=== PATIENT | female | born 1970 | race American Indian/Alaskan Native ===

== ENCOUNTER 2019-11-04 08:59 | Emergency (ER) | payer OTHER ==
[2019-11-04] MEDS ORDERED: ACETAMINOPHEN 500 MG TABLET (FP) PO ONE (09:19)
[2019-11-04 09:27] VITALS: BMI 28.3
[2019-11-04] MEDS ORDERED: ACETAMINOPHEN 500 MG TABLET (FP) ONE (09:30)
--- NOTE | 2019-11-04 09:39 | PDOC ---
History of Present Illness - General Chief Complaint: Injury Stated Complaint: FALL/ BILATERAL LEG INJ Time Seen by Provider: 11/04/19 09:13 History Source: Patient Exam Limitations: No Limitations - History of Present Illness Initial Comments: 11/04/19 09:21 49 yo female phx HTN and DM presents to the ED after a slip and fall from 1 step with an inversion mechanism to both ankles with sudden swelling and pain. Pt states she accidentally tripped down the 1 step, denies hitting head, LOC, changes in strength or sensation on 1 side, N/V, changes in vision, CP, SOB, back pain, abdominal pain. Pt states she fell, was unable to ambulate, was on the ground for 5 min before her son was able to get her to the bed and call the ambulance. Pt does all ADLs on her own prior to fall today. Past History - Medical History Allergies/Adverse Reactions: Allergies Allergy/AdvReac Type Severity Reaction Status Date / Time No Known Drug Allergies Allergy Verified 11/04/19 09:13 [id number] Allergy Intermediate Rash,THROAT Uncoded 11/04/19 09:13 [id number] Home Medications: Ambulatory Orders Cetirizine HCl 10 mg PO DAILY 02/21/16 Enalapril Maleate [Vasotec -] 10 mg PO HS 02/21/16 Simvastatin 20 mg PO DAILY 02/21/16 Ibuprofen [Motrin -] 400 mg PO QID #28 tablet 02/22/16 Metformin HCl [Glucophage] 1,000 mg PO BID 11/04/19 Anemia: No Asthma: No Cancer: No Cardiac Disorders: No CVA: No COPD: No CHF: No Dementia: No Diabetes: No GI Disorders: No Disorders: No HTN: Yes Hypercholesterolemia: No Liver Disease: No Seizures: No Thyroid Disease: No - Psycho-Social/Smoking History Smoking History: Never smoked Review of Systems - Review of Systems Constitutional: Yes: Symptoms Reported HEENTM: Yes: Symptoms Reported Respiratory: Yes: Symptoms reported Cardiac (ROS): Yes: Symptoms Reported ABD/GI: Yes: Symptoms Reported : Yes: Symptoms Reported Musculoskeletal: Yes: Symptoms Reported Integumentary: Yes: Symptoms Reported Neurological: Yes: Symptoms reported *Physical Exam - Physical Exam General Appearance: Yes: Nourished, Appropriately Dressed, Apparent Distress (pain ) HEENT: positive: EOMI Neck: positive: Supple. negative: Carotid bruit Respiratory/Chest: positive: Lungs Clear, Normal Breath Sounds. negative: Respiratory Distress, Accessory Muscle Use Cardiovascular: positive: Regular Rhythm, Regular Rate, S1, S2. negative: Edema, JVD, Murmur Vascular Pulses: Dorsalis-Pedis (R): 4+, Doralis-Pedis (L): 4+ Gastrointestinal/Abdominal: positive: Flat, Soft. negative: Pulsatile Mass, Protuberent, Distended, Guarding, Rebound, Tenderness Musculoskeletal: negative: CVA Tenderness Extremity: positive: Normal Capillary Refill, Normal Inspection, Normal Range of Motion Integumentary: positive: Normal Color, Dry, Warm Neurologic: positive: Fully Oriented, Alert ED Treatment Course - LABORATORY CBC & Chemistry Diagram: 11/04/19 13:30 11/04/19 13:30 - RADIOLOGY Radiology Studies Ordered: Category Date Time Status ANKLE & FOOT-LEFT* [RAD] Stat Radiology 11/04/19 09:16 Ordered ANKLE & FOOT-RIGHT* [RAD] Stat Radiology 11/04/19 09:16 Ordered Medical Decision Making - Medical Decision Making 11/04/19 11:06 discussed case with YURI Howard, recommends CT of ankle Discussed case with Dr. Pickering who looks over images on PACs, states the only fracture found on bilateral lower extremities is the Right distal fibula , not very displaced. Pt can be seen as outpatient Ortho clinic as per Dr. Pickering Discharge - Discharge Information Problems reviewed: Yes Clinical Impression/Diagnosis: Fibula fracture Disposition: HOME - Admission No - Follow up/Referral Referrals: Rafa Pickering MD [Staff Physician] - Baltazar Candelaria DO [Staff Physician] - Arvind Yu DO [Staff Physician] - Andi Lindsey MD [Staff Physician] - Rico Curran MD [Staff Physician] - - Patient Discharge Instructions Patient Printed Discharge Instructions: How to Use Crutches, How to Prevent Falls, Fibula Shaft Fracture Additional Instructions: Please see your Primary Doctor within 48 hours and and call to make an appointment with the Orthopedic doctor referred to you as soon as possible. Rest, Ice, Compress and Elevate your legs, use Motrin over the counter for pain control. Return to the ER for new or concerning symptoms. Thank you - Post Discharge Activity Work/Back to School Note: Back to Work
[2019-11-04] MEDS ORDERED: MORPHINE SULFATE 2 MG/ML VIAL IVPUSH ONE (09:48)
--- NOTE | 2019-11-04 11:18 | PDOC ---
Attending Attestation - Resident Resident Name: ElijahFabian - ED Attending Attestation I have performed the following: I have examined & evaluated the patient, The case was reviewed & discussed with the resident, I agree w/resident's findings & plan - HPI HPI: 11/04/19 15:00 49 yo female phx HTN and DM presents to the ED after a slip and fall from 1 step with an inversion mechanism to both ankles with sudden swelling and pain. Pt states she accidentally tripped down the 1 step, denies hitting head, LOC, changes in strength or sensation on 1 side, N/V, changes in vision, CP, SOB, back pain, abdominal pain. Pt states she fell, was unable to ambulate, was on the ground for 5 min before her son was able to get her to the bed and call the ambulance. Pt does all ADLs on her own prior to fall today. - Physicial Exam PE: 11/04/19 15:01 physical exam General: NAD, well appearing HEENT: NCAT, EOMI, PERRL. airway patent Resp: no distress, speaking full sentences. Abdomen: soft, no tenderness, nondistended Vascular: 2+ DP pulses symmetric and equal. MSK: soft compartment. no calf tenderness. 5/5 plantar and dorsiflexion, wiggles toes. SILT. no laxity at knee jt. 2+ DP pulses bilaterally. b/l ankle swelling and tenderness, left > right b/l lateral malleolar tenderness no prox fibular tenderness Neuro: alert, no focal neurologic deficits Skin: color normal color, warm and well perfused. Cap refill <2 sec. - Medical Decision Making 11/04/19 15:04 Vital Signs Temp Pulse Resp BP Pulse Ox 98.0 F 70 16 170/90 99 11/04/19 09:00 11/04/19 09:00 11/04/19 09:00 11/04/19 09:00 11/04/19 09:27 11/04/19 15:06 Vital signs reviewed mildly hypertensive otherwise unremarkable likely from pain X-rays revealed right distal fibula fracture, no fibula involvement Ankle mortise is preserved, symmetric joint alignment, no dislocation CT scans were performed bilaterally to elucidate occult fracture given the severity of her ankle pain and swelling. Right ankle with slightly displaced right lateral malleoli are fracture and moderate overlying soft tissue swelling, confirmed the ankle mortise is intact, left ankle is only significant soft tissue swelling over the lateral malleolus no evidence of fracture or dislocation. Ankle mortise is also intact. AO splint was placed to the right lower extremity, nonweightbearing fibula is affected. Blake wrapped the left ankle sprain. Crutches to assist with ambulation and weightbearing as tolerated, follow-up with Dr. Pickering as an outpatient, monitor for any worsening symptoms, weightbearing as tolerated, OTC analgesia. Return precautions discussed. Discharged in stable condition. fall safety prevention also discussed. 11/05/19 17:36 Discharge - Discharge Information Problems reviewed: Yes Clinical Impression/Diagnosis: Fibula fracture Qualifiers: Fibula location: distal Fracture type: closed Fracture morphology: unspecified fracture morphology Laterality: right Fracture healing: with routine healing Left ankle sprain Qualifiers: Encounter type: initial encounter Involved ligament of ankle: unspecified ligament Qualified Code(s): S93.402A - Sprain of unspecified ligament of left ankle, initial encounter Condition: Fair Disposition: HOME - Admission No - Follow up/Referral Referrals: Andi Lindsey MD [Staff Physician] - Rico Curran MD [Staff Physician] - Rafa Pickering MD [Staff Physician] - Arvind Yu DO [Staff Physician] - Baltazar Candelaria DO [Staff Physician] - - Patient Discharge Instructions Patient Printed Discharge Instructions: How to Use Crutches, How to Prevent Falls, Fibula Shaft Fracture Additional Instructions: Please see your Primary Doctor within 48 hours and and call to make an appointment with the Orthopedic doctor referred to you as soon as possible. Rest, Ice, Compress and Elevate your legs, use Motrin over the counter for pain control. Return to the ER for new or concerning symptoms. Thank you - Post Discharge Activity Work/Back to School Note: Back to Work
[2019-11-04] MEDS ORDERED: morphine SULFATE 4 MG/ML VIAL ONE (11:21)
[2019-11-04] MEDS ORDERED: MORPHINE SULFATE 2 MG/ML VIAL ONE (11:35)
[2019-11-04 14:06] LABS: HEMATOCRIT 32.1 % (32.4-45.2); MCHC 31.1 g/dl (32.0-36.0); MEAN PLT VOLUME 8.3 fl (7.5-11.1); PLATELET COUNT 332 K/MM3 (134-434); RBC 4.34 M/mm3 (3.60-5.2); WHITE BLOOD COUNT 8.4 K/mm3 (4.0-10.0)
[2019-11-04 14:15] LABS: PROTHROMBIN TIME (PATIENT) 11.8 SEC (9.7-13.0)
[2019-11-04 14:45] LABS: ALBUMIN 3.6 g/dl (3.4-5.0); BILIRUBIN,TOTAL 0.7 mg/dL (0.2-1); BLOOD UREA NITROGEN 7.3 mg/dL (7-18); CALCIUM 8.9 mg/dL (8.5-10.1); CREATININE 0.7 mg/dL (0.55-1.3); POTASSIUM 3.7 mmol/L (3.5-5.1); TOT PROT 7.3 g/dl (6.4-8.2)
[2019-11-04 15:08] VITALS: BP 143/93; PULSE 98; TEMP 98.6
== END 2019-11-04 15:20 | disposition home or self-care (01) ==
LOC: JER 08:59
PROC: 3E033GC Introduction of Other Therapeutic Substance into Peripheral Vein, Percutaneous Approach (ICD-10-PCS; principal; 2019-11-04)
DX: S82.401A Unspecified fracture of shaft of right fibula, initial encounter for closed fracture (principal); W19.XXXA Unspecified fall, initial encounter
CPT/HCPCS: 36415; 73610-TC-LT-FY; 73610-TC-RT-FY; 73630-TC-LT; 73630-TC-RT-FY; 73700-TC-RT; 80053; 85027; 85610; 86850; 86900; 86901; 99284-25